=== PATIENT | male | born 1965 | race Caucasian/White ===

== ENCOUNTER 2017-08-03 11:03 | Emergency (ER) | payer BC ==
[2017-08-03] MEDS ORDERED: DEXAMETHASONE SOD PHOS INJ 10 MG/1 ML VIAL IM ONE (12:09)
[2017-08-03] MEDS ORDERED: KETOROLAC TROMETHAMINE 60 MG/2 ML SDV IM ONE (12:09)
--- NOTE | 2017-08-03 12:15 | ER Document Report ---
ED Neck/Back Problem - General Chief Complaint: Neck Problem Stated Complaint: NECK PAIN Time Seen by Provider: 08/03/17 11:57 Notes: 52 yo male c/o pain to right neck and shoulder x 3 weeks. no trauma recalled. 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 pt is right hand dominant. + radiculopathy to right arm. no fever. TRAVEL OUTSIDE OF THE [place] IN LAST 30 DAYS: No - HPI Patient complains to provider of: Pain Onset: Gradual Timing: Constant Quality of pain: Burning, Sharp Pain Level: 5 Recent injury: No Associated symptoms: Radiation to arm - right. denies: Fever, Numbness/tingling Exacerbated by: Movement of neck Relieved by: Nothing Similar symptoms previously: No Recently seen / treated by doctor: No - Related Data Allergies/Adverse Reactions: No Known Allergies Allergy (Verified 08/03/17 11:11) Past Medical History - General Information source: Patient - Social History Smoking Status: Current Every Day Smoker Frequency of alcohol use: Occasional Drug Abuse: None Lives with: Family Family History: CAD, CVA, Hyperlipidemia, Hypertension. denies: Arthritis, DM, Malignancy, Thyroid Disfunction Renal/ Medical History: Denies: Hx Peritoneal Dialysis Past Surgical History: Reports: Hx Appendectomy - Immunizations Hx Diphtheria, Pertussis, Tetanus Vaccination: Yes - 2013 Review of Systems - Review of Systems Constitutional: No symptoms reported EENT: No symptoms reported Cardiovascular: No symptoms reported Respiratory: No symptoms reported Gastrointestinal: No symptoms reported Genitourinary: No symptoms reported Male Genitourinary: No symptoms reported Musculoskeletal: See HPI Skin: No symptoms reported Hematologic/Lymphatic: No symptoms reported Neurological/Psychological: No symptoms reported Physical Exam - Vital signs Vitals: Temp Pulse Resp BP Pulse Ox 97.8 F 87 16 129/78 H 96 08/03/17 11:11 08/03/17 11:11 08/03/17 11:11 08/03/17 11:11 08/03/17 11:11 Interpretation: Normal - General General appearance: Appears well, Alert - HEENT Head: Normocephalic, Atraumatic Eyes: Normal Conjunctiva: Normal Pupils: PERRL Tympanic membrane: Normal Notes: no cervical vertebral tenderness. + right trapezius muscle tenderness. - Respiratory Respiratory status: No respiratory distress Chest status: Nontender Breath sounds: Normal Chest palpation: Normal - Cardiovascular Rhythm: Regular Heart sounds: Normal auscultation Murmur: No - Abdominal Inspection: Normal Distension: No distension Bowel sounds: Normal Tenderness: Nontender Organomegaly: No organomegaly - Back Back: Normal, Nontender - Extremities General upper extremity: Normal inspection, Nontender, Normal color, Normal ROM , Normal temperature General lower extremity: Normal inspection, Nontender, Normal color, Normal ROM , Normal temperature, Normal weight bearing. No: Keara's sign - Neurological Neuro grossly intact: Yes Cognition: Normal Orientation: AAOx4 Sahra Coma Scale Eye Opening: Spontaneous Sahra Coma Scale Verbal: Oriented [place] Coma Scale Motor: Obeys Commands [place] Coma Scale Total: 15 Speech: Normal Motor strength normal: LUE, RUE, LLE, RLE Sensory: Normal - Psychological Associated symptoms: Normal affect, Normal mood - Skin Skin Temperature: Warm Skin Moisture: Dry Skin Color: Normal Course - Re-evaluation Re-evalutation: 08/03/17 12:17 H&P c/w trapezius muscle strain. no neuro deficits or red flags identified. no trauma. no fever. no imaging indicated. will treat with muscle relaxant and anti inflammatory medications, physical therapy with heat and ice. pt instructed to f/u with primary care if pain persists. pt agreeable with plan and stable for discharge - Vital Signs Vital signs: Temp Pulse Resp BP Pulse Ox 97.8 F 87 16 129/78 H 96 08/03/17 11:11 08/03/17 11:11 08/03/17 11:11 08/03/17 11:11 08/03/17 11:11 Discharge - Discharge Clinical Impression: Trapezius muscle strain Qualifiers: Encounter type: initial encounter Laterality: right Qualified Code(s): S46.811A - Strain of other muscles, fascia and tendons at shoulder and upper arm level, right arm, initial encounter Condition: Stable Instructions: Muscle Strain ([facility]), Ibuprofen (General) ([facility]), Muscle Relaxers ( [facility]), Ice Packs ([facility]), Warm Packs ([facility]), Toradol Injection ([facility]), Steroid Medication Injection Additional Instructions: Your history and physical are consistent with a strained trapezius muscle Your were given 2 injections today in ER for pain and inflammation Take medications as prescribed alternate ice/heat to sore area follow up with primary care if symptoms persist Prescriptions: Ibuprofen [Motrin 800 Mg Tablet] 800 mg PO Q6H #20 tablet Methocarbamol [Robaxin 500 Mg Tablet] 1,000 mg PO Q6 #30 tablet
[2017-08-03 12:32] VITALS: BP 123/82
== END 2017-08-03 12:33 | disposition home or self-care (01) ==
LOC: ER 11:03
DX: S46.811A Strain of other muscles, fascia and tendons at shoulder and upper arm level, right arm, initial encounter (principal); M54.2 Cervicalgia; X58.XXXA Exposure to other specified factors, initial encounter; F17.200 Nicotine dependence, unspecified, uncomplicated
CPT/HCPCS: 99283; 96372; J1885; J1100